=== PATIENT | male | born 1980 ===

== ENCOUNTER 2020-02-02 17:21 | Observation (INO) | payer BC ==
--- NOTE | 2020-02-02 17:40 | EDM.PDOC ---
ED HPI GENERAL MEDICAL PROBLEM - General Chief Complaint: General Stated Complaint: SICK Time Seen by Provider: 02/02/20 17:37 Source of Information: Reports: Patient History Limitations: Reports: No Limitations - History of Present Illness INITIAL COMMENTS - FREE TEXT/NARRATIVE: This 39 year old male presents to the ED with a chief complaint of lightheadedness and almost passed out today. He states that he passed out while going from a bending position to a standing position. He states that he was out for about 3 seconds about one week ago. He denies any chest pain, SOB, nausea or vomiting. He denies any headache or visual disturbances. He denies any gait or imbalances. He denies any other symptoms or complaints. He has no history of heart disease, diabetes mellitus or hypertension. He states that except for his near syncope episodes. - Related Data Allergies Allergy/AdvReac Type Severity Reaction Status Date / Time No Known Allergies Allergy Verified 02/02/20 17:37 Home Meds: Home Meds . [No Known Home Meds] 02/02/20 [History] ED ROS GENERAL - Review of Systems Review Of Systems: See Below Constitutional: Reports: No Symptoms HEENT: Reports: No Symptoms Respiratory: Reports: No Symptoms Cardiovascular: Reports: Lightheadedness Endocrine: Reports: Fatigue GI/Abdominal: Reports: No Symptoms : Reports: No Symptoms Musculoskeletal: Reports: No Symptoms Skin: Reports: No Symptoms Neurological: Reports: Other (near syncope) Psychiatric: Reports: Anxiety Hematologic/Lymphatic: Reports: No Symptoms ED EXAM, GENERAL - Physical Exam Exam: See Below Exam Limited By: No Limitations General Appearance: Alert Eye Exam: Bilateral Eye: EOMI, Normal Fundi, Normal Inspection, PERRL Ears: Normal External Exam, Normal Canal, Hearing Grossly Normal, Normal TMs Ear Exam: Bilateral Ear: Auricle Normal, Canal Normal, TM normal Nose: Normal Inspection, Normal Mucosa Throat/Mouth: Normal Inspection, Normal Oropharynx Head: Atraumatic, Normocephalic Neck: Normal Inspection, Supple, Non-Tender, Full Range of Motion. No: Carotid Bruit Respiratory/Chest: No Respiratory Distress, Lungs Clear, Normal Breath Sounds, Chest Non-Tender Cardiovascular: Normal Peripheral Pulses, No Edema, No Gallop, No JVD, No Murmur , No Rub, Tachycardia Peripheral Pulses: 3+: Dorsalis Pedis (L), Dorsalis Pedis (R), 4+: Carotid (L), Carotid (R), Femoral (L), Femoral (R) GI/Abdominal: Normal Bowel Sounds, Soft, Non-Tender, No Organomegaly, No Abnormal Bruit, No Mass (Male) Exam: Deferred Rectal (Males) Exam: Deferred Back Exam: Normal Inspection, Full Range of Motion Extremities: Normal Inspection, Non-Tender, Normal Capillary Refill. No: Kesha' s Sign Neurological: Alert, Oriented (times 4), CN II-XII Intact, Normal Cognition, Normal Reflexes, No Motor/Sensory Deficits Psychiatric: Normal Affect, Normal Mood Skin Exam: Warm, Dry, Intact, Normal Color, No Rash Lymphatic: No Adenopathy Course - Vital Signs Text/Narrative:: I talked with Dr. Trinidad at 6:38PM. He will be admitted to OBS with a diagnosis of Near Syncope. He agrees with the admission plan. Last Recorded V/S: Last Vital Signs Temp 96.9 F 02/02/20 17:35 Pulse 82 02/02/20 18:00 Resp 18 02/02/20 18:00 BP 110/71 02/02/20 18:00 Pulse Ox 96 02/02/20 18:00 - Orders/Labs/Meds Orders: Active Orders 24 hr Category Date Time Status EKG 12 Lead [EKG Documentation Completion] [RC] STAT Care 02/02/20 18:47 Active Labs: Laboratory Tests 02/02/20 02/02/20 02/02/20 Range/Units 18:00 18:00 18:10 WBC 6.94 (4.0-11.0) K/uL RBC 5.41 (4.50-5.90) M/uL Hgb 15.0 (13.0-17.0) g/dL Hct 45.8 (38.0-50.0) % MCV 84.7 (80.0-98.0) fL MCH 27.7 (27.0-32.0) pg MCHC 32.8 (31.0-37.0) g/dL RDW Std Deviation 43.1 (28.0-62.0) fl RDW Coeff of Justin 14 (11.0-15.0) % Plt Count 212 (150-400) K/uL MPV 8.90 (7.40-12.00) fL Neut % (Auto) 66.3 (48.0-80.0) % Lymph % (Auto) 21.0 (16.0-40.0) % [place] % (Auto) 8.5 (0.0-15.0) % Eos % (Auto) 3.6 (0.0-7.0) % Baso % (Auto) 0.6 (0.0-1.5) % Neut # (Auto) 4.6 (1.4-5.7) K/uL Lymph # (Auto) 1.5 (0.6-2.4) K/uL [place] # (Auto) 0.6 (0.0-0.8) K/uL Eos # (Auto) 0.3 (0.0-0.7) K/uL Baso # (Auto) 0.0 (0.0-0.1) K/uL Nucleated RBC % 0.0 /100WBC Nucleated RBCs # 0 K/uL Sodium 137 (136-148) mmol/L Potassium 4.1 (3.5-5.1) mmol/L Chloride 103 (98-107) mmol/L Carbon Dioxide 26.1 (21.0-32.0) mmol/L BUN 13 (7.0-18.0) mg/dL Creatinine 1.0 (0.8-1.3) mg/dL Est Cr Clr Drug Dosing 104.58 mL/min Estimated GFR (MDRD) > 60.0 ml/min Glucose 101 (74-106) mg/dL Calcium 8.4 L (8.5-10.1) mg/dL Magnesium 2.0 (1.8-2.4) mg/dL Total Bilirubin 0.6 (0.2-1.0) mg/dL AST 17 (15-37) IU/L ALT 22 (14-63) IU/L Alkaline Phosphatase 72 (46-116) U/L Troponin I < 0.050 (0.000-0.056) ng/mL Total Protein 7.5 (6.4-8.2) g/dL Albumin 3.7 (3.4-5.0) g/dL Globulin 3.8 (2.6-4.0) g/dL Albumin/Globulin Ratio 1.0 (0.9-1.6) Urine Color YELLOW Urine Appearance CLEAR Urine pH 7.5 (5.0-8.0) Ur Specific [place] 1.020 (1.001-1.035) Urine Protein NEGATIVE (NEGATIVE) mg/dL Urine Glucose (UA) NEGATIVE (NEGATIVE) mg/dL Urine Ketones NEGATIVE (NEGATIVE) mg/dL Urine Occult Blood NEGATIVE (NEGATIVE) Urine Nitrite NEGATIVE (NEGATIVE) Urine Bilirubin NEGATIVE (NEGATIVE) Urine Urobilinogen 2.0 H (<2.0) EU/dL Ur Leukocyte Esterase NEGATIVE (NEGATIVE) Departure - Departure Time of Disposition: 18:50 Disposition: Refer to Observation Condition: Good Clinical Impression: Near syncope - Discharge Information *PRESCRIPTION DRUG MONITORING PROGRAM REVIEWED*: Yes *COPY OF PRESCRIPTION DRUG MONITORING REPORT IN PATIENT C[place]: Yes Sepsis Event Note - Evaluation Sepsis Screening Result: No Definite Risk - Focused Exam Vital Signs: Vital Signs Temp Pulse Resp BP Pulse Ox 02/02/20 18:00 82 18 110/71 96 02/02/20 17:35 96.9 F 104 H 18 114/69 98 Date Exam was Performed: 02/02/20 Time Exam was Performed: 18:48 - My Orders Last 24 Hours: My Active Orders 02/02/20 18:47 EKG 12 Lead [EKG Documentation Completion] [RC] STAT - Assessment/Plan Last 24 Hours: My Active Orders 02/02/20 18:47 EKG 12 Lead [EKG Documentation Completion] [RC] STAT
--- NOTE | 2020-02-02 18:00 | CR ---
Chest: Portable view of the chest was obtained. Comparison: No prior chest imaging is available. Heart size and mediastinum are normal. Lungs are clear with no acute parenchymal change. Bony structures are grossly intact. Impression: 1. Nothing acute is seen on portable chest x-ray. Diagnostic code #1 This report was dictated in MDT
[2020-02-02 18:34] LABS: BLOOD UREA NITROGEN,BUN 13 mg/dL (7.0-18.0); CARBON DIOXIDE,CO2 26.1 mmol/L (21.0-32.0); CHLORIDE,CL 103 mmol/L (98-107); GLUCOSE RANDOM 101 mg/dL (74-106); POTASSIUM,K 4.1 mmol/L (3.5-5.1); SODIUM,NA 137 mmol/L (136-148)
--- NOTE | 2020-02-02 23:01 | PCM.HP.2 ---
H&P History of Present Illness - General Date of Service: 02/02/20 Admit Problem/Dx: Admission Diagnosis/Problem Admission Diagnosis/Problem Near syncope - History of Present Illness Initial Comments - Free Text/Narative: 39 yo male who presents to the ED with complaints of lightheadedness for two weeks. Patient stated it started two Fridays ago while he was bending over putting air in his tires he became lightheaded which worsened when he stood up. He immediately sat down on the trunk of his car and then loss consciousness for a few seconds. He denies falling. Friends that were with him stated that his eyes rolled to the back of his head and he began snoring. He said he would have normally come to the hospital but was afraid to come in because of the pandemic. Patient admits to loosing about 60 lbs over the past two years by intermittent fasting and cutting carbs. 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 He notice while sitting at the piano he was getting lightheaded and feeling like he may pass out. He was lightheaded last Sunday at a but last Sunday he felt fine. He does notice feeling lightheaded at home especially at night. He reports talking to friends about it makes his lightheadedness better. He thinks his symptoms may be stress related as he is dealing with issues related to immigration and the stay at home order due to the pandemic. He was feeling lightheaded again today. He reported that he felt like he was not going to make it on his drive to the ER but symptoms resolved once he arrived. - Related Data Allergies/Adverse Reactions: Allergies Allergy/AdvReac Type Severity Reaction Status Date / Time No Known Allergies Allergy Verified 02/02/20 21:12 Home Medications: Home Meds . [No Known Home Meds] 02/02/20 [History] Past Medical History - Past Health History Medical/Surgical History: Denies Medical/Surgical History HEENT History: Reports: None Cardiovascular History: Reports: None Respiratory History: Reports: None Gastrointestinal History: Reports: None Genitourinary History: Reports: None Musculoskeletal History: Reports: None Neurological History: Reports: None Psychiatric History: Reports: None Endocrine/Metabolic History: Reports: None Hematologic History: Reports: None Immunologic History: Reports: None Oncologic (Cancer) History: Reports: None Dermatologic History: Reports: None - Infectious Disease History Infectious Disease History: Reports: None - Past Surgical History Head Surgeries/Procedures: Reports: None Male Surgical History: Reports: None Social & Family History - Family History Cardiac: Reports: Hypertension, [place] Other Cardiac Family History: pt's father due to cardiac arrest Endocrine/Metabolic: Reports: Diabetes, type II Oncologic: Reports: Brain Other Oncologic Family History: pt's mother has a brain tumor - Tobacco Use Smoking Status *Q: Never Smoker Second Hand Smoke Exposure: No - Caffeine Use Caffeine Use: Reports: None - Recreational Drug Use Recreational Drug Use: No H&P Review of Systems - Review of Systems: Review Of Systems: Comprehensive ROS is negative, except as noted in HPI. Exam - Exam Exam: See Below - Vital Signs Vital Signs: Last Vital Signs Temp 35.9 C L 02/02/20 20:13 Pulse 78 02/02/20 20:13 Resp 18 02/02/20 20:13 BP 109/69 02/02/20 20:13 Pulse Ox 99 02/02/20 20:13 Weight: 103.3 kg - Exam General: Alert, Oriented HEENT: Conjunctiva Clear, Mucosa Moist & [place], Posterior Pharynx Clear Neck: Supple, Trachea Midline Lungs: Clear to Auscultation, Normal Respiratory Effort Cardiovascular: Regular Rate, Regular Rhythm GI/Abdominal Exam: Normal Bowel Sounds, Soft, Non-Tender Extremities: Non-Tender, No Pedal Edema Skin: Warm, Dry, Intact Neurological: Cranial Nerves Intact, Reflexes Equal Bilateral, Strength Equal Bilateral, Normal Gait, Normal Speech, Normal Tone, Sensation Intact. No: Focal Deficit - Patient Data Lab Results Last 24 hrs: Laboratory Results - last 24 hr 02/02/20 02/02/20 02/02/20 Range/Units 18:00 18:00 18:10 WBC 6.94 (4.0-11.0) K/uL RBC 5.41 (4.50-5.90) M/uL Hgb 15.0 (13.0-17.0) g/dL Hct 45.8 (38.0-50.0) % MCV 84.7 (80.0-98.0) fL MCH 27.7 (27.0-32.0) pg MCHC 32.8 (31.0-37.0) g/dL RDW Std Deviation 43.1 (28.0-62.0) fl RDW Coeff of Justin 14 (11.0-15.0) % Plt Count 212 (150-400) K/uL MPV 8.90 (7.40-12.00) fL Neut % (Auto) 66.3 (48.0-80.0) % Lymph % (Auto) 21.0 (16.0-40.0) % [place] % (Auto) 8.5 (0.0-15.0) % Eos % (Auto) 3.6 (0.0-7.0) % Baso % (Auto) 0.6 (0.0-1.5) % Neut # (Auto) 4.6 (1.4-5.7) K/uL Lymph # (Auto) 1.5 (0.6-2.4) K/uL [place] # (Auto) 0.6 (0.0-0.8) K/uL Eos # (Auto) 0.3 (0.0-0.7) K/uL Baso # (Auto) 0.0 (0.0-0.1) K/uL Nucleated RBC % 0.0 /100WBC Nucleated RBCs # 0 K/uL Sodium 137 (136-148) mmol/L Potassium 4.1 (3.5-5.1) mmol/L Chloride 103 (98-107) mmol/L Carbon Dioxide 26.1 (21.0-32.0) mmol/L BUN 13 (7.0-18.0) mg/dL Creatinine 1.0 (0.8-1.3) mg/dL Est Cr Clr Drug Dosing 104.58 mL/min Estimated GFR (MDRD) > 60.0 ml/min Glucose 101 (74-106) mg/dL Calcium 8.4 L (8.5-10.1) mg/dL Magnesium 2.0 (1.8-2.4) mg/dL Total Bilirubin 0.6 (0.2-1.0) mg/dL AST 17 (15-37) IU/L ALT 22 (14-63) IU/L Alkaline Phosphatase 72 (46-116) U/L Troponin I < 0.050 (0.000-0.056) ng/mL Total Protein 7.5 (6.4-8.2) g/dL Albumin 3.7 (3.4-5.0) g/dL Globulin 3.8 (2.6-4.0) g/dL Albumin/Globulin Ratio 1.0 (0.9-1.6) Urine Color YELLOW Urine Appearance CLEAR Urine pH 7.5 (5.0-8.0) Ur Specific [place] 1.020 (1.001-1.035) Urine Protein NEGATIVE (NEGATIVE) mg/dL Urine Glucose (UA) NEGATIVE (NEGATIVE) mg/dL Urine Ketones NEGATIVE (NEGATIVE) mg/dL Urine Occult Blood NEGATIVE (NEGATIVE) Urine Nitrite NEGATIVE (NEGATIVE) Urine Bilirubin NEGATIVE (NEGATIVE) Urine Urobilinogen 2.0 H (<2.0) EU/dL Ur Leukocyte Esterase NEGATIVE (NEGATIVE) Result Diagrams: 02/02/20 18:00 02/02/20 18:00 Sepsis Event Note - Evaluation Sepsis Screening Result: No Definite Risk - Focused Exam Vital Signs: Vital Signs Temp Pulse Resp BP Pulse Ox 02/02/20 20:13 35.9 C L 78 18 109/69 99 02/02/20 19:30 68 17 107/78 96 02/02/20 19:00 65 17 108/58 L 96 02/02/20 18:30 68 18 101/71 95 02/02/20 18:00 82 18 110/71 96 02/02/20 17:35 36.1 C 104 H 18 114/69 98 Date Exam was Performed: 02/02/20 Time Exam was Performed: 22:43 Problem List Initiated/Reviewed/Updated: Yes Orders Last 24hrs: Active Orders 24 hr Category Date Time Status Admission Status [Patient Status] [ADT] Stat ADT 02/02/20 18:51 Active Antiembolic Devices [RC] PER UNIT ROUTINE Care 02/02/20 22:41 Ordered EKG 12 Lead [EKG Documentation Completion] [RC] STAT Care 02/02/20 18:47 Active Orthostatic Vital Signs [RC] Q12HR Care 02/02/20 20:51 Active Oxygen Therapy [RC] PRN Care 02/02/20 22:40 Ordered Telemetry Monitoring [Cardiac Monitoring] [RC] . Care 02/02/20 20:51 Active DIRECTED Up ad Monisha [RC] ASDIRECTED Care 02/02/20 22:40 Ordered VTE/DVT Education [RC] PER UNIT ROUTINE Care 02/02/20 22:40 Ordered Vital Signs [RC] Q4H Care 02/02/20 22:40 Ordered Regular Diet [DIET] Diet 02/03/20 Breakfast Active Echo Comp wo Cont [US] Routine Exams 02/02/20 22:42 Ordered BASIC METABOLIC PANEL,BMP [CHEM] AM Lab 02/03/20 05:11 Ordered CBC WITH AUTO DIFF [HEME] AM Lab 02/03/20 05:11 Ordered Sequential Compression Device [OM.PC] Per Unit Routine Oth 02/02/20 22:40 Ordered Resuscitation Status Routine Resus Stat 02/02/20 22:40 Ordered Assessment/Plan Comment:: 39 yo male admitted with recent symptoms on near syncope with a syncopal episode two weeks ago. We will monitor on telemetry overnight.
[2020-02-03 07:03] LABS: BLOOD UREA NITROGEN,BUN 12 mg/dL (7.0-18.0); CARBON DIOXIDE,CO2 27.4 mmol/L (21.0-32.0); CHLORIDE,CL 105 mmol/L (98-107); GLUCOSE RANDOM 83 mg/dL (74-106); POTASSIUM,K 3.8 mmol/L (3.5-5.1); SODIUM,NA 139 mmol/L (136-148)
[2020-02-03] MEDS ORDERED: Sodium Chloride 0.9% 1,000 ML IV ONE (09:37)
[2020-02-03] MEDS: Sodium Chloride 0.9% 1,000 ML IV SCH ×2 (10:52→18:56)
--- NOTE | 2020-02-03 11:23 | PCM.PN ---
- General Info Date of Service: 02/03/20 - Review of Systems Systems Review Comment:: feeling better no dizziness this morning - Patient Data Vitals - Most Recent: Last Vital Signs Temp 36.8 C 02/03/20 04:00 Pulse 66 02/03/20 04:00 Resp 16 02/03/20 04:00 BP 94/55 L 02/03/20 04:00 Pulse Ox 96 02/03/20 04:00 Orthostatic Blood Pressure [ 77/54 Standing] Orthostatic Blood Pressure [ 90/56 Sitting] Orthostatic Blood Pressure [ 94/59 Supine] Weight - Most Recent: 103.3 kg I&O - Last 24 Hours: Intake & Output 02/02/20 02/03/20 02/03/20 22:59 06:59 14:59 Intake Total 400 Output Total 300 Balance 100 Lab Results Last 24 Hours: Laboratory Results - last 24 hr 02/02/20 02/02/20 02/02/20 Range/Units 18:00 18:00 18:10 WBC 6.94 (4.0-11.0) K/uL RBC 5.41 (4.50-5.90) M/uL Hgb 15.0 (13.0-17.0) g/dL Hct 45.8 (38.0-50.0) % MCV 84.7 (80.0-98.0) fL MCH 27.7 (27.0-32.0) pg MCHC 32.8 (31.0-37.0) g/dL RDW Std Deviation 43.1 (28.0-62.0) fl RDW Coeff of [place] 14 (11.0-15.0) % Plt Count 212 (150-400) K/uL MPV 8.90 (7.40-12.00) fL Neut % (Auto) 66.3 (48.0-80.0) % Lymph % (Auto) 21.0 (16.0-40.0) % [place] % (Auto) 8.5 (0.0-15.0) % Eos % (Auto) 3.6 (0.0-7.0) % Baso % (Auto) 0.6 (0.0-1.5) % Neut # (Auto) 4.6 (1.4-5.7) K/uL Lymph # (Auto) 1.5 (0.6-2.4) K/uL [place] # (Auto) 0.6 (0.0-0.8) K/uL Eos # (Auto) 0.3 (0.0-0.7) K/uL Baso # (Auto) 0.0 (0.0-0.1) K/uL Nucleated RBC % 0.0 /100WBC Nucleated RBCs # 0 K/uL Sodium 137 (136-148) mmol/L Potassium 4.1 (3.5-5.1) mmol/L Chloride 103 (98-107) mmol/L Carbon Dioxide 26.1 (21.0-32.0) mmol/L BUN 13 (7.0-18.0) mg/dL Creatinine 1.0 (0.8-1.3) mg/dL Est Cr Clr Drug Dosing 104.58 mL/min Estimated GFR (MDRD) > 60.0 ml/min Glucose 101 (74-106) mg/dL Calcium 8.4 L (8.5-10.1) mg/dL Magnesium 2.0 (1.8-2.4) mg/dL Total Bilirubin 0.6 (0.2-1.0) mg/dL AST 17 (15-37) IU/L ALT 22 (14-63) IU/L Alkaline Phosphatase 72 (46-116) U/L Troponin I < 0.050 (0.000-0.056) ng/mL Total Protein 7.5 (6.4-8.2) g/dL Albumin 3.7 (3.4-5.0) g/dL Globulin 3.8 (2.6-4.0) g/dL Albumin/Globulin Ratio 1.0 (0.9-1.6) Urine Color YELLOW Urine Appearance CLEAR Urine pH 7.5 (5.0-8.0) Ur Specific [place] 1.020 (1.001-1.035) Urine Protein NEGATIVE (NEGATIVE) mg/dL Urine Glucose (UA) NEGATIVE (NEGATIVE) mg/dL Urine Ketones NEGATIVE (NEGATIVE) mg/dL Urine Occult Blood NEGATIVE (NEGATIVE) Urine Nitrite NEGATIVE (NEGATIVE) Urine Bilirubin NEGATIVE (NEGATIVE) Urine Urobilinogen 2.0 H (<2.0) EU/dL Ur Leukocyte Esterase NEGATIVE (NEGATIVE) 02/03/20 02/03/20 Range/Units 06:34 06:34 WBC 7.78 (4.0-11.0) K/uL RBC 5.33 (4.50-5.90) M/uL Hgb 14.5 (13.0-17.0) g/dL Hct 45.0 (38.0-50.0) % MCV 84.4 (80.0-98.0) fL MCH 27.2 (27.0-32.0) pg MCHC 32.2 (31.0-37.0) g/dL RDW Std Deviation 42.8 (28.0-62.0) fl RDW Coeff of [place] 14 (11.0-15.0) % Plt Count 220 (150-400) K/uL MPV 9.00 (7.40-12.00) fL Neut % (Auto) 49.3 (48.0-80.0) % Lymph % (Auto) 37.5 (16.0-40.0) % [place] % (Auto) 8.5 (0.0-15.0) % Eos % (Auto) 4.1 (0.0-7.0) % Baso % (Auto) 0.6 (0.0-1.5) % Neut # (Auto) 3.8 (1.4-5.7) K/uL Lymph # (Auto) 2.9 H (0.6-2.4) K/uL [place] # (Auto) 0.7 (0.0-0.8) K/uL Eos # (Auto) 0.3 (0.0-0.7) K/uL Baso # (Auto) 0.1 (0.0-0.1) K/uL Nucleated RBC % 0.0 /100WBC Nucleated RBCs # 0 K/uL Sodium 139 (136-148) mmol/L Potassium 3.8 (3.5-5.1) mmol/L Chloride 105 (98-107) mmol/L Carbon Dioxide 27.4 (21.0-32.0) mmol/L BUN 12 (7.0-18.0) mg/dL Creatinine 0.9 (0.8-1.3) mg/dL Est Cr Clr Drug Dosing 116.20 mL/min Estimated GFR (MDRD) > 60.0 ml/min Glucose 83 (74-106) mg/dL Calcium 8.4 L (8.5-10.1) mg/dL Magnesium (1.8-2.4) mg/dL Total Bilirubin (0.2-1.0) mg/dL AST (15-37) IU/L ALT (14-63) IU/L Alkaline Phosphatase (46-116) U/L Troponin I (0.000-0.056) ng/mL Total Protein (6.4-8.2) g/dL Albumin (3.4-5.0) g/dL Globulin (2.6-4.0) g/dL Albumin/Globulin Ratio (0.9-1.6) Urine Color Urine Appearance Urine pH (5.0-8.0) Ur Specific [place] (1.001-1.035) Urine Protein (NEGATIVE) mg/dL Urine Glucose (UA) (NEGATIVE) mg/dL Urine Ketones (NEGATIVE) mg/dL Urine Occult Blood (NEGATIVE) Urine Nitrite (NEGATIVE) Urine Bilirubin (NEGATIVE) Urine Urobilinogen (<2.0) EU/dL Ur Leukocyte Esterase (NEGATIVE) Med Orders - Current: Current Medications Sodium Chloride (Normal Saline) 1,000 mls @ 125 mls/hr IV ASDIRECTED [facility] Last Admin: 02/03/20 10:52 Dose: 125 mls/hr Discontinued Medications Sodium Chloride (Normal Saline) 1,000 mls @ 999 mls/hr IV .Bolus ONE Stop: 02/03/20 10:37 Last Admin: 02/03/20 09:44 Dose: 999 mls/hr - Exam General: Alert, Oriented Neck: Supple Lungs: Clear to Auscultation, Normal Respiratory Effort Cardiovascular: Regular Rate, Regular Rhythm GI/Abdominal Exam: Soft, No Distention Extremities: Non-Tender, No Pedal Edema Skin: Warm, Dry, Intact Neurological: No New Focal Deficit Sepsis Event Note - Evaluation Sepsis Screening Result: No Definite Risk - Focused Exam Vital Signs: Vital Signs Temp Pulse Resp BP Pulse Ox 02/03/20 04:00 36.8 C 66 16 94/55 L 96 Date Exam was Performed: 02/03/20 Time Exam was Performed: 11:21 - Problem List Review Problem List Initiated/Reviewed/Updated: Yes - My Orders Last 24 Hours: My Active Orders 02/02/20 20:51 Orthostatic Vital Signs [RC] Q12HR Telemetry Monitoring [Cardiac Monitoring] [RC] Q8H 02/02/20 22:40 Oxygen Therapy [RC] PRN Up ad Monisha [RC] ASDIRECTED VTE/DVT Education [RC] PER UNIT ROUTINE Vital Signs [RC] Q4H Sequential Compression Device [OM.PC] Per Unit Routine Resuscitation Status Routine 02/02/20 22:41 Antiembolic Devices [RC] PER UNIT ROUTINE 02/03/20 10:00 Sodium Chloride 0.9% [Normal Saline] 1,000 ml IV ASDIRECTED 02/03/20 22:42 Echo Comp wo Cont [US] Routine 02/03/20 Breakfast Regular Diet [DIET] - Plan Plan:: 39 yo male admitted with recent symptoms on near syncope with a syncopal episode two weeks ago. He was noted to have a drop in his orthostatic vital signs this morning. We will bolus normal saline. Patient is eager to leave so may discharge this afternoon if blood pressures have improved.
[2020-02-04] MEDS: Sodium Chloride 0.9% 1,000 ML IV SCH (03:00)
--- NOTE | 2020-02-04 09:38 | PCM.DCSUM1 ---
Discharge Summary - Discharge Data Discharge Date: 02/04/20 Discharge Disposition: Home, Self-Care 01 Condition: Good - Referral to Home Health Primary Care Physician: Brock Michele MD - Patient Summary/Data Hospital Course: 39 yo male who was admitted for near syncope and dehydration. He presents to the ED with complaints of lightheadedness for two weeks which started when he passed out two weeks ago. Initial work up included normal lab work, EKG and chest x-ray. Echocardiogram was done but report is pending. He was noted to have orthostatic hypotension with blood pressures that would drop from 90s systolic to 70s systolic while standing. He was hydrated with IV fluids with improvement in his orthostatic hypotension. Today patient is requesting discharge. He is to follow up with Dr De Souza this Sunday. - Discharge Plan *PRESCRIPTION DRUG MONITORING PROGRAM REVIEWED*: Yes *COPY OF PRESCRIPTION DRUG MONITORING REPORT IN PATIENT C[place]: Yes Patient Handouts: Near-Syncope, Orthostatic Hypotension Referrals: Brock Michele MD [Primary Care Provider] - 02/06/20 10:30 am - Discharge Summary/Plan Comment DC Time >30 min.: No - Patient Data Vitals - Most Recent: Last Vital Signs Temp 36.3 C 02/04/20 07:28 Pulse 74 02/04/20 04:22 Resp 15 02/04/20 04:22 BP 111/80 02/04/20 04:22 Pulse Ox 96 02/04/20 07:28 Orthostatic Blood Pressure [ 104/66 Standing] Orthostatic Blood Pressure [ 96/72 Sitting] Orthostatic Blood Pressure [ 104/75 Supine] Weight - Most Recent: 103.3 kg I&O - Last 24 hours: Intake & Output 02/03/20 02/04/20 02/04/20 22:59 06:59 14:59 Intake Total 3500 4645 Output Total 1320 1550 Balance 2180 3095 Med Orders - Current: Current Medications Sodium Chloride (Normal Saline) 1,000 mls @ 125 mls/hr IV ASDIRECTED HI Last Admin: 02/04/20 03:00 Dose: 125 mls/hr Discontinued Medications Sodium Chloride (Normal Saline) 1,000 mls @ 999 mls/hr IV .Bolus ONE Stop: 02/03/20 10:37 Last Admin: 02/03/20 09:44 Dose: 999 mls/hr
--- NOTE | 2020-02-05 14:10 | ECHO ---
EXAM DATE: 02/02/20 PATIENT'S AGE: 39 The ECHO report can be seen in this patient's EMR (Electronic Medical Record) in the REPORTS section. The report has also been scanned into PACS. DAVIN
== END 2020-02-04 10:50 | disposition home or self-care (01) ==
LOC: MW.ED 17:21 → MW.MS 18:51
PROVIDERS: ADMIT Internal Medicine; ATTEND Internal Medicine
DX: I95.1 Orthostatic hypotension (principal); E86.0 Dehydration
CPT/HCPCS: 36415; 71045; 80048; 80053; 81003; 83735; 84484; 85025; 93005; 93306; 96360; 96361; 99285; G0378; J7030; 99284